=== PATIENT | male | born 1965 ===

== ENCOUNTER 2025-04-01 08:14 | Inpatient (IN) | payer OTHER ==
[~2025-04-01] VITALS: Ht 182.9 cm; Wt 77.1 kg
[2025-04-23] MEDS ORDERED: CEFAZOLIN SODIUM 1,000 MG VIAL ONE (10:26)
[2025-04-23] MEDS ORDERED: TRANEXAMIC ACID 100MG/1ML (1000MG) AMPUL IV ONE (10:29)
[2025-04-23] MEDS ORDERED: ISOPROPYL ALCOHOL 30 ML OUNCE TOP ONE (11:59)
[2025-04-23] MEDS ORDERED: POVIDONE-IODINE 118 ML BOTT TOP ONE (12:26)
[2025-04-23] MEDS ORDERED: VANCOMYCIN HCL 1,000 MG VIAL ONE (12:26)
[2025-04-23] MEDS ORDERED: METHYLPREDNISOLONE ACETATE 80 MG/ML VIAL ONE (14:27)
[2025-04-23] MEDS ORDERED: KETOROLAC TROMETHAMINE 60 MG VIAL IM ONE (14:28)
[2025-04-23] MEDS ORDERED: BUPIVACAINE HCL/MPF 0.5% 30ML VIAL ONE (14:28)
[2025-04-23] MEDS ORDERED: LIDOCAINE HCL 1%/EPINEPHRINE 20ML VIAL IJ ONE (14:28)
[2025-04-23] MEDS ORDERED: OxyCODONE HCL 5 MG TABLET (ROXICODONE) PO PRN (17:45)
[2025-04-23] MEDS ORDERED: SODIUM CHLORIDE 0.45 % 1,000 ML IV SCH (17:45)
[2025-04-23] MEDS ORDERED: MORPHINE SULFATE 4 MG/ML CARTRIDGE IV PRN (17:45)
[2025-04-23] MEDS ORDERED: ONDANSETRON HCL 2 MG/ML VIAL IV PRN (17:45)
[2025-04-23] MEDS ORDERED: ACETAMINOPHEN 500 MG GEL..CAP PO SCH (18:00)
[2025-04-24] MEDS ORDERED: GABAPENTIN 300 MG CAPSULE PO SCH (01:00)
[2025-04-24] MEDS ORDERED: CEFAZOLIN SODIUM 1,000 MG VIAL IV SCH (01:00)
[2025-04-24] MEDS ORDERED: GABAPENTIN 300 MG CAPSULE PO ONE (03:10)
[2025-04-24] MEDS ORDERED: ACETAMINOPHEN 500 MG GEL..CAP PO ONE (03:10)
[2025-04-24] MEDS ORDERED: CEFAZOLIN SODIUM 1,000 MG VIAL ONE (03:11)
[2025-04-24 06:47] LABS: BASO % 0.2 % (0.1-1.2); HEMATOCRIT 36.6 % (40.1-51.0); HEMOGLOBIN 12.2 g/dL (13.7-17.5); LYMPH # 0.59 (1.18-3.74); LYMPH % 4.6 % (19.3-53.1); MEAN CORPUSCULAR HEMOGLOBIN 29.6 pg (25.6-32.2); MONO # 1.27 (0.24-0.82); MONO % 9.8 % (4.7-12.5); NEUT # 10.99 (1.56-6.13); NEUT % 84.9 % (34.0-71.1); PLATELET COUNT 147 K/uL (163-369); RED BLOOD COUNT 4.12 M/uL (4.63-6.08); RED CELL DISTRIBUTION WIDTH 12.9 % (11.6-14.4)
[2025-04-24] MEDS ORDERED: CEFADROXIL500 MG PO (08:13)
[2025-04-24] MEDS ORDERED: PERCOCET 5-3251 EACH PO (08:13)
[2025-04-24] MEDS ORDERED: ELIQUIS2.5 MG PO (08:13)
[2025-04-24 08:46] VITALS: BP 124/74
[2025-04-24] MEDS ORDERED: APIXABAN 2.5 MG TABLET PO SCH (09:00)
[2025-04-24] MEDS ORDERED: SENNOSIDES 1 TAB TABLET PO SCH (09:00)
[2025-04-24] MEDS ORDERED: Cyanocobalamin/Mecobalamin 1 TAB.SL SL SCH (12:27)
[2025-04-24] MEDS ORDERED: SOD FERRIC GLUC COMPLX/SUCROSE 62.5 MG/5 ML AMPUL IV SCH (12:27)
[2025-04-24] MEDS ORDERED: VITAMIN B COMPLEX 1 EACH PO SCH (17:00)
[2025-04-24 17:36] LABS: COVID-19 AG NEGATIVE (NEGATIVE)
[2025-04-24 17:40] LABS: ALBUMIN 2.9 gm/dL (3.4-5.0); BILIRUBIN TOTAL 0.88 mg/dL (0.3-1.2); CALCIUM 8.5 mg/dL (8.5-10.1); CREATININE SERUM 0.98 mg/dL (0.70-1.30); GFR 77.76; GLOBULINA 2.7 G/DL (2.4-3.5); POTASSIUM 4.52 mEq/L (3.5-5.1); TOTAL PROTEIN 5.6 gm/dL (6.4-8.2)
[2025-04-24 19:11] VITALS: BP 141/81; O2SAT 99
[2025-04-25 00:57] VITALS: BP 135/77; O2SAT 98
[2025-04-25 06:20] LABS: BASO % 0.1 % (0.1-1.2); HEMATOCRIT 34.1 % (40.1-51.0); HEMOGLOBIN 11.3 g/dL (13.7-17.5); LYMPH # 0.74 (1.18-3.74); LYMPH % 6.8 % (19.3-53.1); MONO # 1.47 (0.24-0.82); NEUT # 8.62 (1.56-6.13); NEUT % 79.2 % (34.0-71.1); PLATELET COUNT 157 K/uL (163-369); RED CELL DISTRIBUTION WIDTH 13.1 % (11.6-14.4)
[2025-04-25 06:56] LABS: MONO % 13.5 % (4.7-12.5)
[2025-04-25 08:50] VITALS: BP 146/82; O2SAT 97
[2025-04-25] MEDS ORDERED: IRON FUM,PS/FOLIC ACID/VITC/B3 1 CAP CAPSULE PO SCH (09:00)
[2025-04-25 16:00] VITALS: BP 141/80; O2SAT 99
[2025-04-26 00:03] VITALS: BP 142/83; O2SAT 99
[2025-04-26 07:30] VITALS: BP 133/82; O2SAT 97
[2025-04-26] MEDS ORDERED: SOD FERRIC GLUC COMPLX/SUCROSE 62.5 MG/5 ML AMPUL IV SCH (11:51)
== END 2025-04-26 22:38 | disposition designated cancer center or children's hospital (05) | DRG 470 ==
LOC: SURH 04-09 11:15 → EDSEX 04-23 09:43 → O/R 04-23 09:43 → SURH 04-23 11:15 → SURG 04-23 15:31 → O/R 04-23 15:39 → SURG 04-24 01:46
PROVIDERS: ADMIT Orthopaedic Surgery; ATTEND Orthopaedic Surgery
PROC: 0MBL0ZZ Excision of Right Hip Bursa and Ligament, Open Approach (ICD-10-PCS; 2025-04-23)
PROC: 0SRB0J9 Replacement of Left Hip Joint with Synthetic Substitute, Cemented, Open Approach (ICD-10-PCS; principal; 2025-04-23 07:00)
DX: M16.12 Unilateral primary osteoarthritis, left hip (principal); D62 Acute posthemorrhagic anemia; M87.052 Idiopathic aseptic necrosis of left femur